=== PATIENT | male | born 1960 | race Caucasian/White ===

== ENCOUNTER 2023-04-10 06:10 | Day surgery (SDC) | payer OTHER ==
[2023-04-06 11:00] VITALS: BP 149/84; PULSE 103; RESP 19
[2023-04-06 11:17] LABS: BASOPHILS # (AUTO) 0.09 K/uL (0.00-0.20); BASOPHILS % (AUTO) 0.7 % (0.0-5.0); EOSINOPHILS # (AUTO) 0.56 K/uL (0.00-0.70); EOSINOPHILS % (AUTO) 4.2 % (0.0-8.0); HEMATOCRIT 57.8 % (42-54); IMMATURE GRANULOCYTE ABSOLUTE 0.06 K/uL (0-1); LYMPHOCYTES # (AUTO) 3.3 K/uL (1.0-4.8); LYMPHOCYTES % (AUTO) 24.2 % (21.0-51.0); MEAN CORPUSCULAR HEMOGLOBIN 26.6 pg (27.0-33.0); MEAN CORPUSCULAR HGB CONC 31.8 g/dL (32.0-36.0); MEAN CORPUSCULAR VOLUME 83.5 fL (79-99); MONOCYTES # (AUTO) 0.9 K/uL (0.1-1.0); MONOCYTES % (AUTO) 6.4 % (3.0-13.0); NEUTROPHILS # (AUTO) 8.6 K/uL (1.8-7.7); NEUTROPHILS % (AUTO) 64.1 % (40.0-77.0); PLATELET COUNT (AUTO) 280 K/uL (130-400); RED BLOOD CELL COUNT(AUTO) 6.92 MIL/uL (4.50-6.20); RED CELL DISTRIBUTION WIDTH 17.8 % (11.0-15.5); WHITE BLOOD COUNT (AUTO) 13.4 K/uL (4.8-10.8)
[2023-04-06 11:18] LABS: APPEARANCE,URINE CLEAR (CLEAR); BILIRUBIN,URINE NEGATIVE (NEGATIVE); COLOR,URINE YELLOW (YELLOW); GLUCOSE, URINE (UA) 30 mg/dL (NEGATIVE); KETONES,URINE NEGATIVE (NEGATIVE); LEUKOCYTE ESTERASE ,URINE NEGATIVE Leu/uL (NEGATIVE); NITRATE,URINE NEGATIVE (NEGATIVE); OCCULT BLOOD,URINE NEGATIVE (NEGATIVE); PH,URINE 5.5 (5.0-8.0); PROTEIN,URINE 20 mg/dL (NEGATIVE); UROBILINOGEN,URINE 0.2 mg/dL (0.2-1.0)
[2023-04-06 11:20] LABS: CREATININE 1.1 mg/dL (0.5-1.5)
[2023-04-06 11:21] LABS: ADD UA MICROSCOPIC YES
[2023-04-06 11:23] LABS: INR 1.06 (0.85-1.15); POTASSIUM 2.9 mmol/L (3.5-5.1); PROTHROMBIN TIME 12.3 SEC (9.6-11.6)
[2023-04-06 11:25] LABS: PARTIAL THROMBOPLASTIN TIME 25.9 SEC (26.3-35.5)
[2023-04-06 11:33] LABS: MUCUS,URINE RARE LPF (None Seen); SQUAMOUS EPITHELIAL CELL,UR RARE /HPF (0-2); TRANSITIONAL EPI CELLS,URINE MOD /HPF (None Seen)
[2023-04-06 11:38] LABS: B-TYPE NATRIURETIC PEPTIDE < 5 pg/mL (0-100)
[2023-04-10] VITALS (11 sets, daily range): BP systolic 110–141; BP diastolic 68–80; PULSE 84–104; RESP 11–28
[~2023-04-10] VITALS: Ht 182.9 cm; Wt 108.7 kg
[~2023-04-10 06:10] MED LIST: ALBUTEROL IH; ATOR20TA65 PO; HYDR25TA PO; IBUP-2077 PO; LAMO100T16 PO; LISI40TA9 PO; METO-391 PO; MODA200T48 PO; TESTOSTERONE INJ; VENL150T3 PO; VITA1TAB22 PO; VITAMIN D PO
[2023-04-10 07:00] LABS: CREATININE 1.1 mg/dL (0.5-1.5)
[2023-04-10] MEDS ORDERED: 0.9%NACL 1000ML 1,000 ML IV ONE (07:13)
[2023-04-10] MEDS ORDERED: KCL 20 MEQ ERTAB PO ONE (07:51)
[2023-04-10] MEDS ORDERED: LIDOCAINE HCL 400MG/20ML VIAL ONE (09:44)
[2023-04-10] MEDS ORDERED: NITROGLYCERIN 50MG VIAL ONE (09:45)
[2023-04-10] MEDS ORDERED: HEPARIN 10,000 UNIT/10ML (1,000 UNIT/ML) VIAL ONE (09:45)
[2023-04-10] MEDS ORDERED: MEPERIDINE-PF 25 MG/ML SYG ONE ×2 (09:46→10:15)
[2023-04-10] MEDS ORDERED: IOHEXOL 350 MG/ML 100ML INFUS..BTL IV ONE (09:46)
[2023-04-10] MEDS ORDERED: MIDAZOLAM HCL 1 MG/ML 2ML VIAL ONE ×2 (09:46→10:15)
[2023-04-10] MEDS ORDERED: NICARDIPINE 25MG INJ IV ONE (10:01)
[2023-04-10] MEDS ORDERED: DEXTROSE 50%-WATER 50 ML DISP.SYRIN IV PRN (11:00)
[2023-04-10] MEDS ORDERED: 0.9%NACL 1000ML 1,000 ML IV SCH (11:00)
[2023-04-10] MEDS ORDERED: GLUCAGON 1MG KIT 1 MG ML IM PRN (11:00)
[2023-04-10] MEDS ORDERED: INSULIN HUMULIN R 100 UNIT/ML 3ML SQ SCH (11:30)
== END 2023-04-10 15:00 | disposition home or self-care (01) ==
LOC: DAH 06:10
PROVIDERS: ATTEND Internal Medicine Cardiovascular Disease
DX: Z01.810 Encounter for preprocedural cardiovascular examination (principal); R94.39 Abnormal result of other cardiovascular function study; I10 Essential (primary) hypertension; I73.9 Peripheral vascular disease, unspecified; E78.5 Hyperlipidemia, unspecified; I71.40 Abdominal aortic aneurysm, without rupture, unspecified; Z79.01 Long term (current) use of anticoagulants; Z79.899 Other long term (current) drug therapy
CPT/HCPCS: 80048 ×2; 83880; 85025; 85610; 85730; 87088; 81001; 36415 ×2; 71045; 93005; 96361; 96360; 93458; 82948 ×2; A4223 ×3; Q9965; C1769; C1894; J3490 ×3; J7030; J1644 ×2; J2250 ×2; J2175 ×2; Q9967; A4215; A4222; A6260; A4221; A4663; A4216; A6206; A4606; 99156; 99157

== ENCOUNTER → 2023-07-24 | Outpatient (CLI) | payer OTHER ==
[2023-07-24 16:41] LABS: BILIRUBIN,TOTAL 0.7 mg/dL (0.2-1.0); CREATININE 0.9 mg/dL (0.5-1.5); MAGNESIUM 1.4 mg/dL (1.80-2.40); POTASSIUM 3.7 mmol/L (3.5-5.1); TOTAL PROTEIN, SERUM 7.5 g/dL (6.0-8.3)
== END | disposition home or self-care (01) ==
LOC: LAB 12:01
PROVIDERS: ATTEND Internal Medicine Cardiovascular Disease
DX: I10 Essential (primary) hypertension (principal)
CPT/HCPCS: 36415; 80053; 83735; 83880

== ENCOUNTER → 2023-07-27 | Outpatient (CLI) | payer OTHER | END | disposition home or self-care (01) | LOC: SHCH 07:57 | PROVIDERS: ATTEND Internal Medicine Cardiovascular Disease | DX: I71.40 Abdominal aortic aneurysm, without rupture, unspecified (principal) | CPT/HCPCS: 93978 ==

== ENCOUNTER → 2023-08-24 | Outpatient (CLI) | payer OTHER | END | disposition home or self-care (01) | LOC: SHCH 09:40 | PROVIDERS: ATTEND Internal Medicine Cardiovascular Disease | DX: I35.1 Nonrheumatic aortic (valve) insufficiency (principal); I11.9 Hypertensive heart disease without heart failure; R60.9 Edema, unspecified; I87.2 Venous insufficiency (chronic) (peripheral); R42 Dizziness and giddiness; R06.02 Shortness of breath; R06.09 Other forms of dyspnea; R60.0 Localized edema; Z79.899 Other long term (current) drug therapy | CPT/HCPCS: 93306; 93970 ==

== ENCOUNTER → 2023-08-29 | Outpatient (CLI) | payer OTHER ==
[~2023-08-29] MED LIST changes: +IOHEXOL 350 MG/ML 100ML INFUS..BTL IV ONE
== END ==
LOC: RAH 08:53
PROVIDERS: ATTEND Internal Medicine Cardiovascular Disease
DX: I71.43 Infrarenal abdominal aortic aneurysm, without rupture (principal); I71.40 Abdominal aortic aneurysm, without rupture, unspecified; K80.20 Calculus of gallbladder without cholecystitis without obstruction
CPT/HCPCS: 74174; Q9967

== ENCOUNTER → 2023-12-19 | Outpatient (CLI) | payer OTHER ==
[~2023-12-19] MED LIST changes: -ALBUTEROL IH; +CALC-866 PO; +CARV12.511 PO; +FURO40TA5 PO; -HYDR25TA PO; -IBUP-2077 PO; -LISI40TA9 PO; -METO-391 PO; +POTA-364 PO; +SACU1TAB7 PO; -TESTOSTERONE INJ; -VITA1TAB22 PO; -VITAMIN D PO
== END | disposition home or self-care (01) ==
LOC: RAH 07:40
PROVIDERS: ATTEND Internal Medicine Cardiovascular Disease
DX: I71.43 Infrarenal abdominal aortic aneurysm, without rupture (principal); K80.20 Calculus of gallbladder without cholecystitis without obstruction; K57.30 Diverticulosis of large intestine without perforation or abscess without bleeding; K40.20 Bilateral inguinal hernia, without obstruction or gangrene, not specified as recurrent; I70.0 Atherosclerosis of aorta; Z95.9 Presence of cardiac and vascular implant and graft, unspecified
CPT/HCPCS: 74174; Q9967

== ENCOUNTER → 2024-02-01 | Outpatient (CLI) | payer OTHER ==
[~2024-02-01] MED LIST changes: -IOHEXOL 350 MG/ML 100ML INFUS..BTL IV ONE
== END | disposition home or self-care (01) ==
LOC: SHCH 15:05
PROVIDERS: ATTEND Internal Medicine Cardiovascular Disease
DX: I10 Essential (primary) hypertension (principal)
CPT/HCPCS: 93306

== ENCOUNTER → 2024-07-12 | Outpatient (CLI) | payer OTHER ==
--- NOTE | 2024-07-15 10:58 | HMCSR ---
APPROVED REPORT EXAM: Two-dimensional and M-mode echocardiogram with Doppler and color Doppler. INDICATION ICD: I50.22 Chronic systolic CHF 2D Dimensions RVDd3.9 cmLVEF(%)9.2 (>50%)LVED Vol(simp.)179.0 mL IVSd0.9 (0.7-1.1cm)FS(%)4 %LVES Vol(simp.)105.0 mL LVDd5.2 (3.8-5.6cm)LA (2D)3.8 (1.6-4.0cm)LVEF(%, simp.)41 % PWd1.2 (0.7-1.1cm)Ao Root(2D)3.8 (2.0-3.7cm)LA ESV INDEX (4CH)23.50 mL/m2 IVSs1.2 cmLVOT diam2.5 (1.8-2.4cm)LA ESV INDEX (2CH)26.10 mL/m2 LVDs5.0 (2.5-4.0cm)LA ESV INDEX (BP)23.70 mL/m2 PWs1.3 cm M-Mode Dimensions EPSS1.7 cm LA (MM)3.3 (1.6-4.0cm) Ao Root(MM)3.8 (2.0-3.7cm) Aortic Valve AoV VTI0.3 mAo Mean GR4.0 mmHgLVOT VTI0.19 m KE (VMAX)3.5 cm2AVA (VTI) 3.5 cm2 Mitral Valve MV E Vmax82.0 cm/sDECEL Ajcq279 ms MV A Vmax98.0 cm/sP 1/2 T87 ms E/A ratio0.8MVA (PHT)2.5 cm2 MR Max PG26 mmHg TDI E/E' Kkawvx99.8E/E' Egblqkp98.8 Medial E' Peak V5.20 cm/sLateral E' Peak V4.60 cm/s Left Ventricle The left ventricle is normal size. There is normal left ventricular wall thickness. LVEF is 30-35%. N o left ventricle thrombus noted on this study. Stage I diastolic dysfunction. Right Ventricle The right ventricle is normal size. The right ventricular systolic function is normal. Atria The left atrium size is normal. The right atrium is mildly dilated. Aortic Valve The aortic valve is normal in structure. No aortic regurgitation is present. There is no aortic valvu lar stenosis. Mitral Valve The mitral valve is normal in structure. There is no mitral valve regurgitation noted. There is no mi tral valve stenosis. Tricuspid Valve The tricuspid valve is normal in structure. There is trace of tricuspid valve regurgitation noted. Pulmonic Valve The pulmonary valve is normal in structure. There is no pulmonic valvular regurgitation. Great Vessels The aortic root is normal in size. IVC is normal in size and collapses <50% with inspiration. Pericardium There is no pericardial effusion. Other Information Quality : Technically difficult study due to body habitus. Conclusion The left ventricle is normal size. LVEF is 30-35%. Stage I diastolic dysfunction. The right ventricle is normal size. The left atrium size is normal. The aortic valve is normal in structure. The mitral valve is normal in structure. There is no mitral valve regurgitation noted. There is trace of tricuspid valve regurgitation noted. There is no pulmonic valvular regurgitation. The aortic root is normal in size. IVC is normal in size and collapses <50% with inspiration. There is no pericardial effusion.
== END | disposition home or self-care (01) ==
LOC: RAH 09:22
PROVIDERS: ATTEND Internal Medicine Cardiovascular Disease
DX: I50.22 Chronic systolic (congestive) heart failure (principal); I51.7 Cardiomegaly; I51.89 Other ill-defined heart diseases
CPT/HCPCS: 93306